=== PATIENT | female | born 1995 | race Caucasian/White ===

== ENCOUNTER 2018-12-28 22:52 | Emergency (ER) | payer OTHER ==
[2018-12-29] MEDS: KETOROLAC 30 MG INJ IM (01:36)
[2018-12-29 01:42] LABS: URINE BLOOD (Dip) POC Trace-intact (NEGATIVE); URINE GLUCOSE (Dip) POC Negative (NEGATIVE); URINE KETONES (Dip) POC Negative (NEGATIVE); URINE LEUKOCYTE EST (Dip) POC 1+ (NEGATIVE); URINE NITRITE (Dip) POC Negative (NEGATIVE); URINE TOTAL PROTEIN POC Negative (NEGATIVE)
[2018-12-29] MEDS: CEFTRIAXONE 1 GM INJ IM (02:27)
== END 2018-12-29 02:54 | disposition home or self-care (01) ==
LOC: FTE 22:52
DX: N10 Acute pyelonephritis (principal)
CPT/HCPCS: 81003; 81025; 87086; 96372; 99284-25